=== PATIENT | male | born 1955 | race Caucasian/White ===

== ENCOUNTER → 2024-09-26 06:19 | Day surgery (SDC) | payer MEDICARE, OTHER, SELFPAY ==
--- NOTE | 2024-09-26 12:03 | W.IMMPOSTOP ---
Surgical Immed Post Op Note
-
Primary Surgeon: Aaron Velazco MD
Pre-op Diagnosis: Thrombosed left lateral external hemorrhoid
Post-op Diagnosis: Same
Procedure Performed: Excision of thrombosed left lateral external hemorrhoid
Anesthesia Type: local with sedation (after colonoscopy)
Specimen / Cultures: None
Estimated Blood Loss: 3cc
Complications: None
Operative Findings: Large thrombosis
== END ==
LOC: GI 06:19
PROVIDERS: ATTENDING PHYSICIAN Surgery
DX: Z12.11 Encounter for screening for malignant neoplasm of colon (principal); K57.30 Diverticulosis of large intestine without perforation or abscess without bleeding; K64.9 Unspecified hemorrhoids; K64.5 Perianal venous thrombosis; Z86.0101 Personal history of adenomatous and serrated colon polyps
CPT/HCPCS: 46320; G0105

== ENCOUNTER → 2025-01-22 13:04 | Outpatient (REF) | payer MEDICARE, OTHER, SELFPAY | LOC: RAD 13:04 | PROVIDERS: ATTENDING PHYSICIAN Student in an Organized Health Care Education/Training Program; FAMILY PHYSICIAN Family Medicine; REFERRING PHYSICIAN Internal Medicine Hematology & Oncology | DX: M79.662 Pain in left lower leg (principal) | CPT/HCPCS: 93971 ==